=== PATIENT | male | born 1955 | race Caucasian/White ===

== ENCOUNTER 2017-12-04 11:35 | Outpatient (CLI) | payer OTHER ==
[~2017-12-04] VITALS: Ht 185.4 cm; Wt 113.8 kg
[~2017-12-04 11:35] MED LIST: ANTIVERT25 MG PO; JANTOVEN6 MG PO; LIPITOR10 MG PO; PROSCAR5 MG PO; ULTRAM50 MG PO; XARELTO15 MG PO; ZOCOR80 MG PO
[2017-12-04 17:16] LABS: CHLORIDE 107 MEQ/L (99-109); CREATININE 1.1 MG/DL (0.6-1.3); GFR ESTIMATE (CALCULATED) > 59 mL/min/ (58.99-99999); GLUCOSE 146 mg/dL (70-99); POTASSIUM 4.3 MEQ/L (3.7-5.4); SODIUM 138 MEQ/L (136-147); UREA NITROGEN (BUN) 9 mg/dL (9-23)
[2017-12-04 17:19] LABS: TROP-I INTERPRETATION NEGATIVE; TROPONIN-I < 0.01 ng/mL (0.0-0.30)
[2017-12-04 18:22] VITALS: BP 142/82
[2017-12-04 19:54] VITALS: BP 141/74
[2017-12-04 22:45] LABS: TROP-I INTERPRETATION NEGATIVE; TROPONIN-I 0.01 ng/mL (0.0-0.30)
[2017-12-05 00:39] VITALS: BP 128/75
[2017-12-05 07:15] VITALS: BP 130/70
[2017-12-05 12:07] VITALS: BP 130/72
[2017-12-05 12:08] VITALS: BP 130/72
[2017-12-05 12:09] VITALS: BP 128/72; BP 135/80
== END 2017-12-05 15:26 | disposition home or self-care (01) ==
LOC: AMB 11:35 → 5EAST 14:00 → 2SOUTH 14:00 → ENRESERV 16:20 → 5EAST 18:15
PROVIDERS: Internal Medicine
PROC: 0DJD8ZZ Inspection of Lower Intestinal Tract, Via Natural or Artificial Opening Endoscopic (ICD-10-PCS; principal; 2017-12-04)
DX: Z12.11 Encounter for screening for malignant neoplasm of colon (principal); R55 Syncope and collapse; R03.0 Elevated blood-pressure reading, without diagnosis of hypertension; N40.0 Benign prostatic hyperplasia without lower urinary tract symptoms; E78.5 Hyperlipidemia, unspecified; Z79.01 Long term (current) use of anticoagulants; Z88.1 Allergy status to other antibiotic agents; Z88.0 Allergy status to penicillin
CPT/HCPCS: 80048; 82948; 84484; 93005; G0378; J3010

== ENCOUNTER → 2017-12-22 | Outpatient (CLI) | payer OTHER | END | disposition home or self-care (01) | LOC: RAD 12:27 | DX: R55 Syncope and collapse (principal) | CPT/HCPCS: 93880 ==